=== PATIENT | female | born 1990 | race Caucasian/White ===

== ENCOUNTER 2022-02-26 15:16 | Outpatient (CLI) | payer OTHER | END 2022-02-26 15:17 | disposition home or self-care (01) | LOC: CSHLAB 15:16 | PROVIDERS: ATTEND Nurse Practitioner Adult Health | DX: Z20.822 Contact with and (suspected) exposure to COVID-19 (principal); Z53.9 Procedure and treatment not carried out, unspecified reason ==

== ENCOUNTER 2022-03-01 15:03 | Outpatient (CLI) | payer OTHER | END 2022-03-01 15:04 | disposition home or self-care (01) | LOC: CSHCP 15:03 | PROVIDERS: ATTEND Nurse Practitioner Adult Health | DX: J45.40 Moderate persistent asthma, uncomplicated (principal) | CPT/HCPCS: 94010; 94760 ==

== ENCOUNTER 2022-10-05 12:10 | Outpatient (CLI) | payer OTHER ==
[~2022-10-05 12:10] MED LIST: Magnevist 469MG/ML 20 ML VIAL ONE
== END 2022-10-05 12:11 | disposition home or self-care (01) ==
LOC: CSHMRI 12:10
PROVIDERS: ATTEND Psychiatry & Neurology Neurology
DX: H53.2 Diplopia (principal)
CPT/HCPCS: 70553; 72156; 72157; A9579

== ENCOUNTER 2023-08-12 14:13 | Outpatient (CLI) | payer OTHER | END 2023-08-12 14:14 | disposition home or self-care (01) | LOC: CSHRAD 14:13 | PROVIDERS: ATTEND Internal Medicine | DX: M25.572 Pain in left ankle and joints of left foot (principal) ==